=== PATIENT | male | born 1955 | race Caucasian/White ===

== ENCOUNTER 2016-12-12 13:45 | Emergency (ER) | payer OTHER ==
[~2016-12-12] VITALS: Ht 182.9 cm; Wt 124.0 kg
[~2016-12-12 13:45] MED LIST: OXYB10TA PO
[2016-12-12 13:47] VITALS: BP 163/90
[2016-12-12] MEDS ORDERED: KETOROLAC 30 MG/1 ML ONE (14:24)
[2016-12-12] MEDS ORDERED: KETOROLAC 30 MG/1 ML IM ONE (14:30)
== END 2016-12-12 15:16 | disposition home or self-care (01) ==
LOC: ED 15:10
DX: S30.0XXA Contusion of lower back and pelvis, initial encounter (principal); W01.0XXA Fall on same level from slipping, tripping and stumbling without subsequent striking against object, initial encounter; Y93.89 Activity, other specified; Y92.89 Other specified places as the place of occurrence of the external cause; Y99.8 Other external cause status
CPT/HCPCS: 72220; 96372; 99284; J1885

== ENCOUNTER 2017-07-31 13:59 | Emergency (ER) | payer MEDICAID, OTHER ==
[~2017-07-31] VITALS: Ht 182.9 cm; Wt 124.4 kg
[2017-07-31 14:07] VITALS: BP 164/76
== END 2017-07-31 16:34 | disposition home or self-care (01) ==
LOC: ED 16:03
DX: S83.411A Sprain of medial collateral ligament of right knee, initial encounter (principal); I10 Essential (primary) hypertension; X58.XXXA Exposure to other specified factors, initial encounter; Y93.89 Activity, other specified; Y99.8 Other external cause status; Y92.009 Unspecified place in unspecified non-institutional (private) residence as the place of occurrence of the external cause
CPT/HCPCS: 99284

== ENCOUNTER 2017-12-09 16:28 | Emergency (ER) | payer MEDICAID ==
[~2017-12-09] VITALS: Ht 182.9 cm; Wt 124.0 kg
[2017-12-09] MEDS ORDERED: MECLIZINE CHEWABLE 25 MG TAB PO ONE (17:00)
[2017-12-09 17:08] LABS: BASOPHILS # (AUTO) 0.05 x10^3/uL (0-0.1); BASOPHILS % (AUTO) 1 % (0-1); EOSINOPHILS # (AUTO) 0.27 x10^3/uL (0-0.4); EOSINOPHILS % (AUTO) 4 % (1-7); LYMPHOCYTES # (AUTO) 2.39 x10^3/uL (1-3.4); LYMPHOCYTES % (AUTO) 35 % (22-44); MD NO; MEAN CORPUSCULAR HEMOGLOBIN 32.4 pg (27.5-34.5); MEAN CORPUSCULAR HGB CONC 34.7 g/dL (33.2-36.2); MEAN CORPUSCULAR VOLUME 93.6 fL (81-97); MEAN PLATELET VOLUME 8.9 fL (7.4-10.4); MONOCYTES # (AUTO) 0.74 x10^3/uL (0.2-0.8); MONOCYTES % (AUTO) 11 % (2-9); NEUTROPHILS % (AUTO) 50 % (42-75); PLATELET COUNT 174 x10^3/uL (130-400); RED BLOOD COUNT 5.06 x10^6/uL (4.38-5.82); RED CELL DISTRIBUTION WIDTH 12.4 % (9.4-14.8)
[2017-12-09] MEDS ORDERED: MECLIZINE CHEWABLE 25 MG TAB ONE (17:14)
[2017-12-09 17:18] LABS: ALANINE AMINOTRANSFERASE 43 U/L (12-78); ALBUMIN 3.4 g/dL (3.4-5.0); ANION GAP 5 mmol/L (5-15); CALCIUM 7.7 mg/dL (8.5-10.1); CHLORIDE 108 mmol/L (98-107); CREATININE 0.98 mg/dL (0.7-1.3)
[2017-12-09 17:21] LABS: ALKALINE PHOSPHATASE 86 U/L (45-117); BILIRUBIN,TOTAL 0.4 mg/dL (0.2-1.0); TOTAL PROTEIN 6.5 g/dL (6.4-8.2); TROPONIN I < 0.015 ng/mL (0.000-0.045)
[2017-12-09 18:56] VITALS: BP 137/73
== END 2017-12-09 19:01 | disposition home or self-care (01) ==
LOC: ED 18:56
DX: R42 Dizziness and giddiness (principal); R73.9 Hyperglycemia, unspecified; I10 Essential (primary) hypertension
CPT/HCPCS: 36415; 71045; 80053; 83880; 84484; 85025; 93005; 99285

== ENCOUNTER 2018-03-01 05:45 | Emergency (ER) | payer MEDICAID ==
[~2018-03-01] VITALS: Ht 182.9 cm; Wt 122.7 kg
[2018-03-01] MEDS ORDERED: FAMOTIDINE 20 MG TABLET PO ONE (06:30)
[2018-03-01] MEDS ORDERED: MAALOX/HYOSCYAMINE/LIDOCAINE 45 ML BTL PO ONE ×2 (06:30→09:00)
[2018-03-01] MEDS ORDERED: MAALOX/HYOSCYAMINE/LIDOCAINE 45 ML BTL ONE ×2 (06:31→08:48)
[2018-03-01] MEDS ORDERED: FAMOTIDINE 20 MG TABLET ONE (06:31)
[2018-03-01 06:46] LABS: BASOPHILS # (AUTO) 0.07 x10^3/uL (0-0.1); BASOPHILS % (AUTO) 1 % (0-1); EOSINOPHILS # (AUTO) 0.29 x10^3/uL (0-0.4); EOSINOPHILS % (AUTO) 4 % (1-7); LYMPHOCYTES # (AUTO) 1.64 x10^3/uL (1-3.4); LYMPHOCYTES % (AUTO) 19 % (22-44); MD NO; MEAN CORPUSCULAR HEMOGLOBIN 32.9 pg (27.5-34.5); MEAN CORPUSCULAR HGB CONC 35.1 g/dL (33.2-36.2); MEAN CORPUSCULAR VOLUME 93.7 fL (81-97); MEAN PLATELET VOLUME 8.9 fL (7.4-10.4); MONOCYTES % (AUTO) 11 % (2-9); NEUTROPHILS % (AUTO) 66 % (42-75); PLATELET COUNT 208 x10^3/uL (130-400); RED BLOOD COUNT 4.73 x10^6/uL (4.38-5.82); RED CELL DISTRIBUTION WIDTH 12.9 % (9.4-14.8)
[2018-03-01 06:55] LABS: INTERNATIONAL NORMALIZED RATIO 1.1 (0.93-1.1); PROTHROMBIN TIME 11.4 Seconds (9.6-11.5)
[2018-03-01 06:58] LABS: ALANINE AMINOTRANSFERASE 13 U/L (12-78); ALBUMIN 2.6 g/dL (3.4-5.0); ANION GAP 9 mmol/L (5-15); CALCIUM 8.4 mg/dL (8.5-10.1); CHLORIDE 108 mmol/L (98-107); CREATININE 0.46 mg/dL (0.7-1.3)
[2018-03-01 07:02] LABS: ALKALINE PHOSPHATASE 159 U/L (45-117); BILIRUBIN,TOTAL 0.3 mg/dL (0.2-1.0); TOTAL PROTEIN 6.8 g/dL (6.4-8.2); TROPONIN I < 0.015 ng/mL (0.000-0.045)
[2018-03-01 09:14] LABS: TROPONIN I < 0.015 ng/mL (0.000-0.045)
[2018-03-01 09:19] VITALS: BP 143/68
== END 2018-03-01 09:37 | disposition home or self-care (01) ==
LOC: ED 06:02
DX: R07.89 Other chest pain (principal); K21.0 Gastro-esophageal reflux disease with esophagitis
CPT/HCPCS: 36415; 71045; 80053; 84484; 85025; 85610; 85730; 93005; 99285

== ENCOUNTER 2018-03-02 11:23 | Observation (INO) | payer MEDICAID ==
[~2018-03-02] VITALS: Ht 182.9 cm; Wt 119.7 kg
[2018-03-02] MEDS ORDERED: NITROGLYCERIN SINGLE TAB 0.4 MG SL ONE ×2 (11:53→12:03)
[2018-03-02] MEDS: NITROGLYCERIN SINGLE TAB 0.4 MG SL PRN ×3 (11:56→15:36)
[2018-03-02 11:57] LABS: BASOPHILS # (AUTO) 0.05 x10^3/uL (0-0.1); BASOPHILS % (AUTO) 1 % (0-1); EOSINOPHILS # (AUTO) 0.21 x10^3/uL (0-0.4); EOSINOPHILS % (AUTO) 2 % (1-7); LYMPHOCYTES # (AUTO) 1.45 x10^3/uL (1-3.4); LYMPHOCYTES % (AUTO) 16 % (22-44); MD NO; MEAN CORPUSCULAR HEMOGLOBIN 32.4 pg (27.5-34.5); MEAN CORPUSCULAR HGB CONC 34.5 g/dL (33.2-36.2); MEAN CORPUSCULAR VOLUME 93.9 fL (81-97); MEAN PLATELET VOLUME 8.8 fL (7.4-10.4); MONOCYTES % (AUTO) 11 % (2-9); NEUTROPHILS # (AUTO) 6.11 x10^3/uL (1.8-6.8); NEUTROPHILS % (AUTO) 69 % (42-75); PLATELET COUNT 214 x10^3/uL (130-400); RED BLOOD COUNT 4.83 x10^6/uL (4.38-5.82); RED CELL DISTRIBUTION WIDTH 12.7 % (9.4-14.8)
[2018-03-02 12:11] LABS: ALANINE AMINOTRANSFERASE 43 U/L (12-78); ALBUMIN 3.3 g/dL (3.4-5.0); ANION GAP 8 mmol/L (5-15); CHLORIDE 106 mmol/L (98-107); CREATININE 0.89 mg/dL (0.7-1.3)
[2018-03-02 12:15] LABS: ALKALINE PHOSPHATASE 86 U/L (45-117); BILIRUBIN,TOTAL 0.6 mg/dL (0.2-1.0); TOTAL PROTEIN 6.5 g/dL (6.4-8.2); TROPONIN I < 0.015 ng/mL (0.000-0.045)
[2018-03-02 12:17] LABS: INTERNATIONAL NORMALIZED RATIO 1.07 (0.93-1.1); PROTHROMBIN TIME 11.1 Seconds (9.6-11.5)
[2018-03-02] MEDS ORDERED: MAALOX/HYOSCYAMINE/LIDOCAINE 45 ML BTL ONE (12:17)
[2018-03-02] MEDS ORDERED: MAALOX/HYOSCYAMINE/LIDOCAINE 45 ML BTL PO ONE ×2 (12:30→17:00)
[2018-03-02] MEDS ORDERED: morphine SULFATE 10 MG/ML, 1ML IVPush ONE (14:00)
[2018-03-02] MEDS ORDERED: MORPHINE SULFATE 4 MG/ML, 1ML ONE (14:09)
[2018-03-02 14:49] VITALS: BP 141/77
[2018-03-02] MEDS ORDERED: ENALAPRILAT 1.25 MG/ML, 2ML IVPush PRN (17:00)
[2018-03-02] MEDS ORDERED: POLYETHYLENE GLYCOL 17 GM PACKET PO PRN (17:00)
[2018-03-02] MEDS ORDERED: DOCUSATE 100 MG CAPSULE PO PRN (17:00)
[2018-03-02] MEDS ORDERED: morphine SULFATE 10 MG/ML, 1ML IVPush PRN (17:00)
[2018-03-02] MEDS ORDERED: BISACODYL 10 MG SUPP PR PRN (17:00)
[2018-03-02] MEDS ORDERED: NICOTINE 14MG/24 HR PATCH.TD24 TD SCH (17:00)
[2018-03-02] MEDS ORDERED: ACETAMINOPHEN 325 MG TABLET PO PRN (17:00)
[2018-03-02] MEDS ORDERED: hydrALAzine 20 MG/ML, 1ML IVPush PRN (17:00)
[2018-03-02] MEDS: HEPARIN 5,000 UNITS/ML, 1ML SQ SCH (17:29)
[2018-03-02 17:55] LABS: FREE T4 (FREE THYROXINE) 0.83 ng/dL (0.76-1.46); TROPONIN I < 0.015 ng/mL (0.000-0.045)
[2018-03-02 18:58] LABS: HEMOGLOBIN A1C 7.4 % (4.2-6.3)
[2018-03-02 19:20] VITALS: BP 136/73
[2018-03-02] MEDS: FAMOTIDINE 20 MG TABLET PO SCH (20:51)
[2018-03-02] MEDS ORDERED: ATORVASTATIN 40 MG TABLET PO SCH (21:00)
[2018-03-02 21:30] LABS: AMPHETAMINE SCREEN, URINE Negative (Negative); BARBITURATE SCREEN, URINE Negative (Negative); BENZODIAZEPINE SCREEN, URINE Negative (Negative); CANNABINOID SCREEN, URINE Negative (Negative); COCAINE SCREEN, URINE Negative (Negative); METHADONE SCREEN, URINE Negative (Negative); OPIATE SCREEN, URINE Positive (Negative)
[2018-03-02 23:36] LABS: TROPONIN I < 0.015 ng/mL (0.000-0.045)
[2018-03-03] MEDS: HEPARIN 5,000 UNITS/ML, 1ML SQ SCH ×2 (01:00→08:11)
[2018-03-03 02:00] VITALS: BP 157/81
[2018-03-03] MEDS: OXYBUTYNIN CHLORIDE 5 MG TABLET PO SCH ×2 (02:35→08:11)
[2018-03-03 05:29] LABS: CALCIUM 7.7 mg/dL (8.5-10.1); CHLORIDE 105 mmol/L (98-107); CHOLESTEROL, TOTAL 142 mg/dL (140-239)
[2018-03-03 05:33] LABS: ANION GAP 6 mmol/L (5-15); CHOL/HDL RATIO 5.1; CREATININE 0.84 mg/dL (0.7-1.3); HDL CHOL % 20 % (26-37); HDL CHOLESTEROL (DIRECT) 28 mg/dL (40-60); LDL CHOLESTEROL,CALCULATED 71 mg/dL (54-169); LDL/HDL RATIO 2.5 (0.5-3.0); TRIGLYCERIDES 214 mg/dL (50-200); VLDL CHOLESTEROL 43 mg/dL (0-25)
[2018-03-03 07:14] VITALS: BP 122/73
[2018-03-03] MEDS ORDERED: PANTOPROZOLE 40MG TABLET PO SCH (07:30)
[2018-03-03] MEDS: FAMOTIDINE 20 MG TABLET PO SCH (08:10)
[2018-03-03] MEDS ORDERED: REGADENOSON 0.4 MG/5 ML SYRINGE ONE (08:30)
[2018-03-03] MEDS ORDERED: ASPIRIN 325 MG TABLET PO SCH (09:00)
[2018-03-03 13:00] VITALS: BP 123/74
[2018-03-03] MEDS ORDERED: METF500T17 PO (14:25)
[2018-03-03] MEDS ORDERED: PANT40TA5 PO (14:25)
[2018-03-03] MEDS ORDERED: FLU VAC QS18-19(4YR UP)CEL/PF 0.5ML IM-VACC ONE (15:30)
== END 2018-03-03 16:15 | disposition home or self-care (01) ==
LOC: ED 11:43 → INTOOBSV 13:16 → EDIP 13:16 → 5SO 14:57 → DCLOUNGE 03-03 15:50
PROVIDERS: ADMIT Internal Medicine; ATTEND Internal Medicine
DX: R07.9 Chest pain, unspecified (principal); E11.9 Type 2 diabetes mellitus without complications; E78.5 Hyperlipidemia, unspecified; F17.200 Nicotine dependence, unspecified, uncomplicated; I10 Essential (primary) hypertension; K21.9 Gastro-esophageal reflux disease without esophagitis; K80.20 Calculus of gallbladder without cholecystitis without obstruction; M19.90 Unspecified osteoarthritis, unspecified site; N40.0 Benign prostatic hyperplasia without lower urinary tract symptoms; Z82.3 Family history of stroke; Z23 Encounter for immunization
CPT/HCPCS: 36415; 71045; 76700; 78452; 80048; 80053; 80061; 80307; 83036; 83690; 83735; 83880; 84100; 84439; 84443; 84484; 85025; 85610; 85730; 90471; 90656; 93005; 93017; 96372; 96374; 99285; A9502; C9898; G0378; J1644; J2270; J2785

== ENCOUNTER → 2018-06-05 | Outpatient (CLI) | payer MEDICAID ==
[~2018-06-05] MED LIST changes: +METF500T17 PO; +PANT40TA5 PO
== END | disposition home or self-care (01) ==
LOC: RAD 15:44
PROVIDERS: ATTEND Physician Assistant
DX: K80.20 Calculus of gallbladder without cholecystitis without obstruction (principal); Z87.442 Personal history of urinary calculi
CPT/HCPCS: 74018

== ENCOUNTER → 2018-08-15 | Outpatient (CLI) | payer MEDICAID | END | disposition home or self-care (01) | LOC: CFH 08:27 | PROVIDERS: ATTEND Urology | DX: K80.20 Calculus of gallbladder without cholecystitis without obstruction (principal); K42.9 Umbilical hernia without obstruction or gangrene; J43.9 Emphysema, unspecified | CPT/HCPCS: 71046; 74176 ==

== ENCOUNTER 2019-10-09 16:00 | Emergency (ER) | payer MEDICAID ==
[~2019-10-09] VITALS: Ht 182.9 cm; Wt 122.7 kg
[~2019-10-09 16:00] MED LIST changes: -OXYB10TA PO; +OXYB10TA26 PO
[2019-10-09 16:02] VITALS: BP 163/80
--- NOTE | 2019-10-09 16:25 | NUR ---
Pt to room from lobby.
[2019-10-09] MEDS ORDERED: LIDOCAINE-MPF 1%, 5ML INFIL ONE (17:30)
[2019-10-09] MEDS ORDERED: LIDOCAINE-MPF 1%, 5ML ONE (17:33)
--- NOTE | 2019-10-09 17:40 | NUR ---
MEDS PULLED FOR PROVIDER ADMIN
[2019-10-09] MEDS ORDERED: NEOSPORIN OINT. PKT 1 PACKET ONE (18:56)
== END 2019-10-09 19:07 | disposition home or self-care (01) ==
LOC: ED 18:05
DX: S91.341A Puncture wound with foreign body, right foot, initial encounter (principal); F17.200 Nicotine dependence, unspecified, uncomplicated; X58.XXXA Exposure to other specified factors, initial encounter; Y93.89 Activity, other specified; Y92.098 Other place in other non-institutional residence as the place of occurrence of the external cause; Y99.8 Other external cause status
CPT/HCPCS: 10120; 99285

== ENCOUNTER 2020-01-02 14:19 | Emergency (ER) | payer MEDICARE, MEDICAID ==
[~2020-01-02] VITALS: Ht 182.9 cm; Wt 124.6 kg
[~2020-01-02 14:19] MED LIST changes: -PANT40TA5 PO; +PANT40TA6 PO
[2020-01-02] MEDS ORDERED: SODIUM CHLORIDE FLUSH 10ML SYR IVF ONE (15:30)
[2020-01-02] MEDS ORDERED: GABA600T7 PO (15:40)
[2020-01-02] MEDS ORDERED: LISI-167 PO (15:40)
[2020-01-02] MEDS ORDERED: TAMS-11 PO (15:40)
[2020-01-02] MEDS ORDERED: ATOR20TA37 PO (15:40)
[2020-01-02] MEDS ORDERED: IBUP-1222 PO (15:40)
[2020-01-02 15:48] LABS: BASOPHILS # (AUTO) 0.04 x10^3/uL (0-0.1); BASOPHILS % (AUTO) 0 % (0-1); EOSINOPHILS # (AUTO) 0.11 x10^3/uL (0-0.4); EOSINOPHILS % (AUTO) 1 % (1-7); LYMPHOCYTES # (AUTO) 1.66 x10^3/uL (1-3.4); LYMPHOCYTES % (AUTO) 18 % (22-44); MD NO; MEAN CORPUSCULAR HEMOGLOBIN 31.8 pg (27.5-34.5); MEAN CORPUSCULAR HGB CONC 33.7 g/dL (33.2-36.2); MEAN CORPUSCULAR VOLUME 94.3 fL (81-97); MEAN PLATELET VOLUME 9.3 fL (7.4-10.4); MONOCYTES # (AUTO) 1.39 x10^3/uL (0.2-0.8); MONOCYTES % (AUTO) 15 % (2-9); NEUTROPHILS % (AUTO) 66 % (42-75); PLATELET COUNT 174 x10^3/uL (130-400); RED BLOOD COUNT 4.86 x10^6/uL (4.38-5.82); RED CELL DISTRIBUTION WIDTH 12.7 % (9.4-14.8)
[2020-01-02 15:59] LABS: ALANINE AMINOTRANSFERASE 54 U/L (12-78); ALBUMIN 3.6 g/dL (3.4-5.0); ANION GAP 5 mmol/L (5-15); CALCIUM 8.9 mg/dL (8.5-10.1); CHLORIDE 108 mmol/L (98-107)
[2020-01-02 16:03] LABS: ALKALINE PHOSPHATASE 102 U/L (45-117); BILIRUBIN,TOTAL 0.7 mg/dL (0.2-1.0); TOTAL PROTEIN 7.3 g/dL (6.4-8.2); TROPONIN I < 0.015 ng/mL (0.000-0.045)
--- NOTE | 2020-01-02 16:30 | NUR ---
PT AMBULATED TO BR WITHOUT DIFFICULTY.
[2020-01-02 16:45] VITALS: BP 158/80
--- NOTE | 2020-01-02 17:16 | NUR ---
ERP AT BS.
== END 2020-01-02 17:46 | disposition home or self-care (01) ==
LOC: ED 15:57
DX: J02.9 Acute pharyngitis, unspecified (principal); R50.9 Fever, unspecified; Z20.828 Contact with and (suspected) exposure to other viral communicable diseases; R94.31 Abnormal electrocardiogram [ECG] [EKG]
CPT/HCPCS: 36415; 71045; 80053; 83605; 84484; 85025; 87040; 87635; 93005; 99285

== ENCOUNTER → 2020-03-11 | Outpatient (CLI) | payer MEDICARE, MEDICAID ==
[~2020-03-11] MED LIST changes: +ATOR20TA37 PO; +GABA600T7 PO; +IBUP-1222 PO; +LISI-167 PO; +OMNIPAQUE 350 MG/ML, 100ML BOTTLE ONE; +TAMS-11 PO
== END | disposition home or self-care (01) ==
LOC: CFH 14:09
PROVIDERS: ATTEND Physician Assistant
DX: K80.20 Calculus of gallbladder without cholecystitis without obstruction (principal); K42.9 Umbilical hernia without obstruction or gangrene; M51.37 Other intervertebral disc degeneration, lumbosacral region; R19.4 Change in bowel habit
CPT/HCPCS: 74177; Q9967

== ENCOUNTER 2020-06-05 18:28 | Emergency (ER) | payer MEDICARE, MEDICAID ==
[~2020-06-05] VITALS: Ht 182.9 cm; Wt 123.3 kg
[~2020-06-05 18:28] MED LIST changes: -OMNIPAQUE 350 MG/ML, 100ML BOTTLE ONE
[2020-06-05 18:37] VITALS: BP 142/80
[2020-06-05] MEDS ORDERED: NEOSPORIN OINT. PKT 1 PACKET ONE (19:30)
== END 2020-06-05 19:35 | disposition home or self-care (01) ==
LOC: ED 19:00
DX: S80.11XA Contusion of right lower leg, initial encounter (principal); J43.9 Emphysema, unspecified; E11.9 Type 2 diabetes mellitus without complications; I10 Essential (primary) hypertension; W01.0XXA Fall on same level from slipping, tripping and stumbling without subsequent striking against object, initial encounter; Y93.89 Activity, other specified; Y92.009 Unspecified place in unspecified non-institutional (private) residence as the place of occurrence of the external cause; Y99.8 Other external cause status
CPT/HCPCS: 99283